=== PATIENT | female | born 1930 | race Caucasian/White ===

== ENCOUNTER 2016-10-02 19:50 | Inpatient (IN) | payer OTHER, MEDICARE ==
[~2016-10-02] VITALS: Ht 162.6 cm; Wt 56.8 kg
[2016-10-02 19:50] VITALS: BP_SYST 144
[2016-10-02] MEDS ORDERED: ASPIRIN 81 MG TAB.CHEW PO ONE (20:00)
[2016-10-02] MEDS ORDERED: DILTIAZEM HCL 25 MG/5 ML VIAL IVP ONE ×2 (20:00→22:15)
[2016-10-02 20:47] LABS: BASOPHILS # (AUTO) 0.2 K/uL (0.0-0.2); BASOPHILS % (AUTO) 1.6 % (0.0-2.0); EOSINOPHILS % (AUTO) 0.1 % (0.0-4.0); HEMATOCRIT 35.3 % (36-48); HEMOGLOBIN 11.8 g/dL (12.0-16.0); LYMPHOCYTES % (AUTO) 14.5 % (20.5-51.5); MEAN CORPUSCULAR HEMOGLOBIN 29 pg (27-31); MEAN CORPUSCULAR HGB CONC 34 % (32-36); MEAN CORPUSCULAR VOLUME 87 fL (79.0-98.0); MONOCYTES # (AUTO) 1.2 K/uL (0.0-1.0); MONOCYTES % (AUTO) 8.9 % (1.7-9.3); NEUTROPHILS # (AUTO) 10.1 K/uL (1.8-7.7); NEUTROPHILS % (AUTO) 74.9 % (40.0-70.0); PLATELET COUNT (AUTO) 373 K/uL (130-430); RED BLOOD CELL COUNT(AUTO) 4.07 MIL/uL (4.2-6.2); RED CELL DISTRIBUTION WIDTH 21.1 % (9.0-15.0); WHITE BLOOD COUNT (AUTO) 13.5 K/uL (4.8-10.8)
[2016-10-02 20:57] LABS: INR 1.7 (0.8-1.2); PROTHROMBIN TIME 18.5 SECS (9.5-12.5)
[2016-10-02 21:00] LABS: ANION GAP 16 (5-15); CALCIUM 8.9 mg/dL (8.4-11.0); CHLORIDE 101 mmol/L (98-107); CREATININE 1.02 mg/dL (0.55-1.30); GLUCOSE 131 mg/dL (70-99); SODIUM SERUM 132 mmol/L (136-145); UREA NITROGEN, BLOOD 17 mg/dL (8-21)
[2016-10-02 21:06] LABS: POTASSIUM 5.7 mmol/L (3.5-5.1)
[2016-10-02 21:21] LABS: ALANINE AMINOTRANSFERASE 684 U/L (12-78); ASPARTATE AMINOTRANSFERASE 192 U/L (10-37); TOTAL BILIRUBIN 2.5 mg/dL (0.0-1.0)
[2016-10-02 21:22] LABS: CREATINE KINASE, TOTAL 58 U/L (26-192); PHOSPHORUS 4.4 mg/dL (2.7-4.5)
[2016-10-02] MEDS ORDERED: cefTRIAXone 1 GM in D5W 50 ML IV ONE (21:30)
[2016-10-02] MEDS ORDERED: cefTRIAXone 1 GM IVPB PREMIX 50 ML IV ONE (21:37)
[2016-10-02] MEDS ORDERED: cefTRIAXone 1 GM VIAL ONE (21:37)
[2016-10-02] MEDS ORDERED: FUROSEMIDE 40 MG/4 ML VIAL IVP ONE (21:45)
[2016-10-02] MEDS ORDERED: fentaNYL CITRATE/PF 100 MCG/2 ML AMP IVP ONE (21:45)
[2016-10-02] MEDS ORDERED: SODIUM POLYSTYRENE SULFONATE 15 GM/60 ML UDBTL PO ONE (21:45)
[2016-10-02] MEDS ORDERED: DILTIAZEM HCL 125 MG in D5W 100 ML IV ONE (21:45)
[2016-10-02] MEDS ORDERED: BRI.2% OP (22:03)
[2016-10-02] MEDS ORDERED: LISI2.5T48 PO (22:03)
[2016-10-02] MEDS ORDERED: BIMA2.5D5 BOTH EYES (22:03)
[2016-10-02] MEDS ORDERED: CARV3.1246 PO (22:03)
[2016-10-02] MEDS ORDERED: ZOLP5TAB2 PO (22:03)
[2016-10-02] MEDS ORDERED: DULO20CA PO (22:03)
[2016-10-02] MEDS ORDERED: D5/0.45 NS 1,000 ML IV SCH (22:15)
[2016-10-02 22:17] LABS: AMYLASE 78 U/L (0-100); LIPASE 98 U/L (73-393)
[2016-10-02 22:32] LABS: INR 1.6 (0.8-1.2); PROTHROMBIN TIME 18.1 SECS (9.5-12.5)
[2016-10-02 22:42] LABS: BILIRUBIN,URINE NEGATIVE (NEGATIVE); BLOOD, URINE NEGATIVE (NEGATIVE); CLARITY/URINE HAZY (CLEAR); COLOR,URINE AMBER (YELLOW); GLUCOSE,URINE NEGATIVE (NEGATIVE); KETONES,URINE NEGATIVE (NEGATIVE); LEUKOCYTE ESTERASE ,URINE TRACE (NEGATIVE); NITRITE, URINE NEGATIVE (NEGATIVE); PH,URINE 5.5 (5.0-8.0); PROTEIN URINE TRACE (NEGATIVE); UROBILINOGEN,URINE 0.2 (0.2-1.0)
[2016-10-02] MEDS ORDERED: IPRATROPIUM/ALBUTEROL SULFATE 3 ML AMPUL.NEB INH PRN ×2 (22:45)
[2016-10-02] MEDS ORDERED: DILTIAZEM HCL 25 MG/5 ML VIAL ONE (22:45)
[2016-10-02 22:53] VITALS: BP_SYST 101
[2016-10-02 23:09] LABS: BACTERIA,URINE FEW /HPF (None Seen); MUCUS,URINE 3+ /LPF (None Seen); RBC,URINE 0-3 /HPF (0-3)
[2016-10-02] MEDS ORDERED: METOPROLOL TARTRATE 5 MG/5 ML VIAL IVP PRN (23:45)
[2016-10-03] VITALS (7 sets, daily range): BP systolic 100–117
[2016-10-03] MEDS ORDERED: CARVEDILOL 6.25 MG TABLET (COREG) PO ONE (00:30)
[2016-10-03] MEDS ORDERED: METOPROLOL TARTRATE 5 MG/5 ML VIAL IVP ONE (01:00)
[2016-10-03] MEDS ORDERED: PIPERACILLIN/TAZOBACTAM 3.375 GM/VIAL (ZOSYN) IV ONE (04:08)
[2016-10-03] MEDS: PIPERACILLIN/TAZO 3.375 GM in NS 50 ML IV SCH ×3 (06:01→22:48)
[2016-10-03 07:33] LABS: BASOPHILS % (AUTO) 0.2 % (0.0-2.0); HEMATOCRIT 34.1 % (36-48); HEMOGLOBIN 11.1 g/dL (12.0-16.0); LYMPHOCYTES # (AUTO) 1.8 K/uL (1.0-5.5); LYMPHOCYTES % (AUTO) 18.4 % (20.5-51.5); MEAN CORPUSCULAR HEMOGLOBIN 29 pg (27-31); MEAN CORPUSCULAR HGB CONC 33 % (32-36); MEAN CORPUSCULAR VOLUME 88 fL (79.0-98.0); MONOCYTES # (AUTO) 1.8 K/uL (0.0-1.0); MONOCYTES % (AUTO) 18.4 % (1.7-9.3); NEUTROPHILS % (AUTO) 62.9 % (40.0-70.0); PLATELET COUNT (AUTO) 305 K/uL (130-430); RED BLOOD CELL COUNT(AUTO) 3.88 MIL/uL (4.2-6.2); RED CELL DISTRIBUTION WIDTH 21.3 % (9.0-15.0); WHITE BLOOD COUNT (AUTO) 9.6 K/uL (4.8-10.8)
[2016-10-03 07:37] LABS: EOSINOPHILS % (AUTO) 0.1 % (0.0-4.0)
[2016-10-03 07:56] LABS: INR 1.6 (0.8-1.2); PROTHROMBIN TIME 17.5 SECS (9.5-12.5)
[2016-10-03 08:06] LABS: ANION GAP 10 (5-15); CALCIUM 8.2 mg/dL (8.4-11.0); CHLORIDE 102 mmol/L (98-107); GLUCOSE 171 mg/dL (70-99); POTASSIUM 4.1 mmol/L (3.5-5.1); SODIUM SERUM 135 mmol/L (136-145); UREA NITROGEN, BLOOD 18 mg/dL (8-21)
[2016-10-03 08:07] LABS: CREATININE 1.04 mg/dL (0.55-1.30)
[2016-10-03 08:14] LABS: TOTAL BILIRUBIN 1.9 mg/dL (0.0-1.0)
[2016-10-03 08:15] LABS: ALANINE AMINOTRANSFERASE 535 U/L (12-78); ALBUMIN 2.4 g/dL (3.4-4.8); ASPARTATE AMINOTRANSFERASE 141 U/L (10-37); CHOLESTEROL 123 mg/dL (<200); HDL CHOLESTEROL 19 mg/dL (>55); LDL CHOLESTEROL 81 mg/dL (<100); TOTAL PROTEIN, SERUM 5.9 g/dL (6.4-8.3); TRIGLYCERIDES 65 mg/dL (30-150)
[2016-10-03 08:27] LABS: LIPASE 100 U/L (73-393)
[2016-10-03] MEDS: FUROSEMIDE 20 MG TABLET PO SCH ×2 (08:46→21:31)
[2016-10-03] MEDS: ENOXAPARIN SODIUM 40 MG/0.4 ML SYRINGE SUBCUT SCH (08:47)
[2016-10-03] MEDS: DULoxetine HCL 20 MG CAPSULE.DR PO SCH (08:48)
[2016-10-03] MEDS: LISINOPRIL 5 MG TABLET PO SCH (08:49)
[2016-10-03] MEDS ORDERED: CARVEDILOL 6.25 MG TABLET (COREG) PO SCH (09:00)
[2016-10-03] MEDS ORDERED: DIATR MEGLU/DIATRIZ SOD 30 ML SOLUTION PO ONE (10:04)
[2016-10-03] MEDS ORDERED: SODIUM CL 3% FOR INHALATION 15 ML VIAL.NEB INH ONE (16:32)
[2016-10-03] MEDS: LATANOPROST 2.5 ML DROPS (XALATAN) OP SCH (21:22)
[2016-10-03] MEDS: BRIMONIDINE TARTRATE 0.2% 5 mL EYE DROPS OP SCH (21:22)
[2016-10-03] MEDS ORDERED: VANCOMYCIN HCL 1 GM/NS PREMIX 250 ML IV ONE (21:30)
[2016-10-03] MEDS: CARVEDILOL 12.5 MG TABLET (COREG) PO SCH (21:32)
[2016-10-03] MEDS: ZOLPIDEM TARTRATE 5 MG TABLET PO PRN (21:37)
[2016-10-03] MEDS ORDERED: VANCOMYCIN HCL 1000 MG/VIAL IV ONE (21:54)
[2016-10-03] MEDS ORDERED: CARVEDILOL 12.5 MG TABLET (COREG) PO ONE (23:15)
[2016-10-04 01:41] VITALS: BP_SYST 104
[2016-10-04 04:10] VITALS: BP_SYST 137
[2016-10-04] MEDS: PIPERACILLIN/TAZO 3.375 GM in NS 50 ML IV SCH ×3 (05:09→21:24)
[2016-10-04 07:18] LABS: ANION GAP 9 (5-15); CALCIUM 7.8 mg/dL (8.4-11.0); CHLORIDE 102 mmol/L (98-107); CREATININE 0.94 mg/dL (0.55-1.30); GLUCOSE 103 mg/dL (70-99); SODIUM SERUM 135 mmol/L (136-145); UREA NITROGEN, BLOOD 21 mg/dL (8-21)
[2016-10-04 07:27] LABS: ALANINE AMINOTRANSFERASE 419 U/L (12-78); ALBUMIN 2.2 g/dL (3.4-4.8); ASPARTATE AMINOTRANSFERASE 133 U/L (10-37); TOTAL BILIRUBIN 1.6 mg/dL (0.0-1.0); TOTAL PROTEIN, SERUM 5.2 g/dL (6.4-8.3)
[2016-10-04 07:31] LABS: BASOPHILS % (AUTO) 0.5 % (0.0-2.0); EOSINOPHILS # (AUTO) 0.3 K/uL (0.0-0.4); EOSINOPHILS % (AUTO) 3.5 % (0.0-4.0); HEMATOCRIT 29.4 % (36-48); HEMOGLOBIN 9.6 g/dL (12.0-16.0); LYMPHOCYTES # (AUTO) 1.5 K/uL (1.0-5.5); LYMPHOCYTES % (AUTO) 18.3 % (20.5-51.5); MEAN CORPUSCULAR HEMOGLOBIN 28 pg (27-31); MEAN CORPUSCULAR HGB CONC 33 % (32-36); MEAN CORPUSCULAR VOLUME 87 fL (79.0-98.0); MONOCYTES # (AUTO) 1.3 K/uL (0.0-1.0); MONOCYTES % (AUTO) 16.7 % (1.7-9.3); NEUTROPHILS # (AUTO) 4.9 K/uL (1.8-7.7); PLATELET COUNT (AUTO) 220 K/uL (130-430); RED BLOOD CELL COUNT(AUTO) 3.38 MIL/uL (4.2-6.2); RED CELL DISTRIBUTION WIDTH 20.5 % (9.0-15.0)
[2016-10-04 07:45] LABS: CHOLESTEROL 110 mg/dL (<200); HDL CHOLESTEROL 16 mg/dL (>55); LDL CHOLESTEROL 76 mg/dL (<100); TRIGLYCERIDES 62 mg/dL (30-150)
[2016-10-04 08:38] VITALS: BP_SYST 120
[2016-10-04] MEDS: DULoxetine HCL 20 MG CAPSULE.DR PO SCH (09:13)
[2016-10-04] MEDS: FUROSEMIDE 20 MG TABLET PO SCH ×2 (09:16→20:31)
[2016-10-04] MEDS: LISINOPRIL 5 MG TABLET PO SCH (09:16)
[2016-10-04] MEDS: ENOXAPARIN SODIUM 40 MG/0.4 ML SYRINGE SUBCUT SCH (09:16)
[2016-10-04] MEDS: CARVEDILOL 12.5 MG TABLET (COREG) PO SCH ×2 (09:17→20:32)
[2016-10-04 12:56] VITALS: BP_SYST 101
[2016-10-04] MEDS ORDERED: POTASSIUM CHLORIDE 20 MEQ TAB.PRT.SR PO ONE ×3 (15:42→19:45)
[2016-10-04 16:44] VITALS: BP_SYST 91
[2016-10-04 19:50] VITALS: BP_SYST 147
[2016-10-04] MEDS: LATANOPROST 2.5 ML DROPS (XALATAN) OP SCH (20:29)
[2016-10-04] MEDS: BRIMONIDINE TARTRATE 0.2% 5 mL EYE DROPS OP SCH (20:29)
[2016-10-04] MEDS: ZOLPIDEM TARTRATE 5 MG TABLET PO PRN (21:45)
[2016-10-05] VITALS (7 sets, daily range): BP systolic 111–143
[2016-10-05] MEDS ORDERED: HYDROcodone/ACETAMIN 5-325 MG TAB (NORCO/ VICODIN) PO PRN (05:15)
[2016-10-05] MEDS ORDERED: MORPHINE 2 MG/ML INJ. SYRINGE IVP PRN (05:15)
[2016-10-05] MEDS: PIPERACILLIN/TAZO 3.375 GM in NS 50 ML IV SCH ×3 (05:29→21:47)
[2016-10-05 06:57] LABS: BASOPHILS % (AUTO) 0.5 % (0.0-2.0); EOSINOPHILS # (AUTO) 0.4 K/uL (0.0-0.4); EOSINOPHILS % (AUTO) 5.3 % (0.0-4.0); HEMATOCRIT 31.3 % (36-48); HEMOGLOBIN 10.2 g/dL (12.0-16.0); LYMPHOCYTES # (AUTO) 1.3 K/uL (1.0-5.5); LYMPHOCYTES % (AUTO) 17.7 % (20.5-51.5); MEAN CORPUSCULAR HEMOGLOBIN 29 pg (27-31); MEAN CORPUSCULAR HGB CONC 33 % (32-36); MEAN CORPUSCULAR VOLUME 88 fL (79.0-98.0); MONOCYTES # (AUTO) 1.3 K/uL (0.0-1.0); MONOCYTES % (AUTO) 18.2 % (1.7-9.3); NEUTROPHILS # (AUTO) 4.2 K/uL (1.8-7.7); NEUTROPHILS % (AUTO) 58.3 % (40.0-70.0); PLATELET COUNT (AUTO) 243 K/uL (130-430); RED BLOOD CELL COUNT(AUTO) 3.55 MIL/uL (4.2-6.2); RED CELL DISTRIBUTION WIDTH 20.7 % (9.0-15.0); WHITE BLOOD COUNT (AUTO) 7.2 K/uL (4.8-10.8)
[2016-10-05 07:06] LABS: ALANINE AMINOTRANSFERASE 395 U/L (12-78); ALBUMIN 2.2 g/dL (3.4-4.8); ANION GAP 7 (5-15); ASPARTATE AMINOTRANSFERASE 189 U/L (10-37); CALCIUM 7.9 mg/dL (8.4-11.0); CHLORIDE 106 mmol/L (98-107); CREATININE 0.78 mg/dL (0.55-1.30); GLUCOSE 98 mg/dL (70-99); POTASSIUM 3.4 mmol/L (3.5-5.1); SODIUM SERUM 139 mmol/L (136-145); TOTAL BILIRUBIN 1.5 mg/dL (0.0-1.0); TOTAL PROTEIN, SERUM 5.6 g/dL (6.4-8.3); UREA NITROGEN, BLOOD 19 mg/dL (8-21)
[2016-10-05] MEDS: FUROSEMIDE 20 MG TABLET PO SCH ×2 (08:57→21:40)
[2016-10-05] MEDS: ENOXAPARIN SODIUM 40 MG/0.4 ML SYRINGE SUBCUT SCH (08:57)
[2016-10-05] MEDS: LISINOPRIL 5 MG TABLET PO SCH (08:57)
[2016-10-05] MEDS: CARVEDILOL 12.5 MG TABLET (COREG) PO SCH ×2 (08:58→21:39)
[2016-10-05] MEDS: DULoxetine HCL 20 MG CAPSULE.DR PO SCH (08:58)
[2016-10-05 10:35] LABS: IRON (SERUM) 28 mcg/dL (37-145); TOTAL IRON BIND. CAPACITY 244 ug/dL (250-450)
[2016-10-05] MEDS: LATANOPROST 2.5 ML DROPS (XALATAN) OP SCH (21:38)
[2016-10-05] MEDS: ZOLPIDEM TARTRATE 5 MG TABLET PO PRN (21:47)
[2016-10-05] MEDS: BRIMONIDINE TARTRATE 0.2% 5 mL EYE DROPS OP SCH (21:47)
[2016-10-06 05:43] VITALS: BP_SYST 121
[2016-10-06] MEDS: PIPERACILLIN/TAZO 3.375 GM in NS 50 ML IV SCH ×3 (06:54→22:16)
[2016-10-06 07:47] LABS: ALANINE AMINOTRANSFERASE 341 U/L (12-78); ALBUMIN 2.3 g/dL (3.4-4.8); ANION GAP 8 (5-15); ASPARTATE AMINOTRANSFERASE 161 U/L (10-37); CALCIUM 7.6 mg/dL (8.4-11.0); CHLORIDE 98 mmol/L (98-107); CREATININE 0.77 mg/dL (0.55-1.30); GLUCOSE 86 mg/dL (70-99); SODIUM SERUM 135 mmol/L (136-145); TOTAL BILIRUBIN 1.4 mg/dL (0.0-1.0); TOTAL PROTEIN, SERUM 5.2 g/dL (6.4-8.3); UREA NITROGEN, BLOOD 15 mg/dL (8-21)
[2016-10-06 07:56] VITALS: BP_SYST 123
[2016-10-06 07:57] LABS: POTASSIUM 2.9 mmol/L (3.5-5.1)
[2016-10-06] MEDS: ENOXAPARIN SODIUM 40 MG/0.4 ML SYRINGE SUBCUT SCH (08:29)
[2016-10-06] MEDS: DULoxetine HCL 20 MG CAPSULE.DR PO SCH (08:30)
[2016-10-06] MEDS: FUROSEMIDE 20 MG TABLET PO SCH ×2 (08:30→20:55)
[2016-10-06] MEDS: LISINOPRIL 5 MG TABLET PO SCH (08:30)
[2016-10-06] MEDS: CARVEDILOL 12.5 MG TABLET (COREG) PO SCH ×2 (08:31→20:42)
[2016-10-06] MEDS ORDERED: POTASSIUM CHLORIDE 20 MEQ TAB.PRT.SR PO SCH (09:45)
[2016-10-06] MEDS ORDERED: POTASSIUM CHLORIDE 20 MEQ TAB.PRT.SR PO ONE ×2 (10:00→13:00)
[2016-10-06 10:40] LABS: HEPATITIS A AB, IgM Negative (Negative); HEPATITIS B CORE AB, IgM Negative (Negative); HEPATITIS B SURFACE AG Negative (Negative)
[2016-10-06 12:42] VITALS: BP_SYST 111
[2016-10-06] MEDS ORDERED: POTASSIUM CHLORIDE 10 MEQ TAB.PRT.SR PO ONE (12:45)
[2016-10-06 16:26] VITALS: BP_SYST 100
[2016-10-06 20:00] VITALS: BP_SYST 131
[2016-10-06] MEDS: POTASSIUM CHLORIDE 10 MEQ TAB.PRT.SR PO SCH (20:43)
[2016-10-06] MEDS: LATANOPROST 2.5 ML DROPS (XALATAN) OP SCH (20:43)
[2016-10-06] MEDS: BRIMONIDINE TARTRATE 0.2% 5 mL EYE DROPS OP SCH (20:44)
[2016-10-06] MEDS: ZOLPIDEM TARTRATE 5 MG TABLET PO PRN (22:15)
[2016-10-06 23:32] VITALS: BP_SYST 124
[2016-10-07 03:32] VITALS: BP_SYST 123
[2016-10-07 06:58] LABS: ANION GAP 7 (5-15); CALCIUM 8.2 mg/dL (8.4-11.0); CHLORIDE 100 mmol/L (98-107); CREATININE 0.85 mg/dL (0.55-1.30); GLUCOSE 85 mg/dL (70-99); POTASSIUM 3.6 mmol/L (3.5-5.1); SODIUM SERUM 135 mmol/L (136-145); UREA NITROGEN, BLOOD 17 mg/dL (8-21)
[2016-10-07 07:07] LABS: ALANINE AMINOTRANSFERASE 293 U/L (12-78); ALBUMIN 2.2 g/dL (3.4-4.8); ASPARTATE AMINOTRANSFERASE 143 U/L (10-37); TOTAL BILIRUBIN 1.2 mg/dL (0.0-1.0); TOTAL PROTEIN, SERUM 5.7 g/dL (6.4-8.3)
[2016-10-07 08:00] VITALS: BP_SYST 131
[2016-10-07] MEDS: PIPERACILLIN/TAZO 3.375 GM in NS 50 ML IV SCH ×3 (08:10→21:49)
[2016-10-07] MEDS: POTASSIUM CHLORIDE 10 MEQ TAB.PRT.SR PO SCH ×2 (09:18→21:50)
[2016-10-07] MEDS: CARVEDILOL 12.5 MG TABLET (COREG) PO SCH ×2 (09:19→21:50)
[2016-10-07] MEDS: LISINOPRIL 5 MG TABLET PO SCH (09:20)
[2016-10-07] MEDS: DULoxetine HCL 20 MG CAPSULE.DR PO SCH (09:20)
[2016-10-07] MEDS: ENOXAPARIN SODIUM 40 MG/0.4 ML SYRINGE SUBCUT SCH (09:21)
[2016-10-07] MEDS: FUROSEMIDE 20 MG TABLET PO SCH ×2 (09:21→21:49)
[2016-10-07 12:32] VITALS: BP_SYST 101
[2016-10-07 16:04] VITALS: BP_SYST 111
[2016-10-07 20:37] VITALS: BP_SYST 119
[2016-10-07] MEDS: ZOLPIDEM TARTRATE 5 MG TABLET PO PRN (21:50)
[2016-10-07] MEDS: LATANOPROST 2.5 ML DROPS (XALATAN) OP SCH (21:52)
[2016-10-07] MEDS: BRIMONIDINE TARTRATE 0.2% 5 mL EYE DROPS OP SCH (21:52)
[2016-10-07 23:34] VITALS: BP_SYST 111
[2016-10-08 03:36] VITALS: BP_SYST 113
[2016-10-08] MEDS: PIPERACILLIN/TAZO 3.375 GM in NS 50 ML IV SCH ×3 (06:23→22:41)
[2016-10-08 07:48] LABS: HEMATOCRIT 31.7 % (36-48); HEMOGLOBIN 10.3 g/dL (12.0-16.0); MEAN CORPUSCULAR HEMOGLOBIN 29 pg (27-31); MEAN CORPUSCULAR HGB CONC 33 % (32-36); MEAN CORPUSCULAR VOLUME 88 fL (79.0-98.0); PLATELET COUNT (AUTO) 237 K/uL (130-430); RED CELL DISTRIBUTION WIDTH 20.7 % (9.0-15.0)
[2016-10-08 08:29] LABS: ALANINE AMINOTRANSFERASE 264 U/L (12-78); ALBUMIN 2.5 g/dL (3.4-4.8); ANION GAP 8 (5-15); ASPARTATE AMINOTRANSFERASE 108 U/L (10-37); CALCIUM 8.5 mg/dL (8.4-11.0); CHLORIDE 97 mmol/L (98-107); CREATININE 0.85 mg/dL (0.55-1.30); GLUCOSE 80 mg/dL (70-99); POTASSIUM 3.6 mmol/L (3.5-5.1); SODIUM SERUM 131 mmol/L (136-145); TOTAL BILIRUBIN 1.3 mg/dL (0.0-1.0); TOTAL PROTEIN, SERUM 6.3 g/dL (6.4-8.3); UREA NITROGEN, BLOOD 14 mg/dL (8-21); WHITE BLOOD COUNT (AUTO) 8.2 K/uL (4.8-10.8)
[2016-10-08 10:09] VITALS: BP_SYST 100
[2016-10-08 10:12] LABS: ATYPICAL LYMPHOCYTES % 0 % (0-0); BAND % (MANUAL) 0 % (0-6); BASOPHILS % (MANUAL) 0 % (0-2); EOSINOPHILS % (MANUAL) 6 % (0-7); LYMPHOCYTES % (MANUAL) 20 % (20-46); MONOCYTES % (MANUAL) 26 % (0-11)
[2016-10-08] MEDS: POTASSIUM CHLORIDE 10 MEQ TAB.PRT.SR PO SCH ×2 (10:46→21:39)
[2016-10-08] MEDS: LISINOPRIL 5 MG TABLET PO SCH (10:47)
[2016-10-08] MEDS: FUROSEMIDE 20 MG TABLET PO SCH ×2 (10:48→21:00)
[2016-10-08] MEDS: DULoxetine HCL 20 MG CAPSULE.DR PO SCH (10:48)
[2016-10-08] MEDS: ENOXAPARIN SODIUM 40 MG/0.4 ML SYRINGE SUBCUT SCH (10:49)
[2016-10-08] MEDS: CARVEDILOL 25 MG TABLET (COREG) PO SCH ×2 (10:49→21:39)
[2016-10-08 10:58] LABS: ANTI NUCLEAR AB WITH REFLEX Negative (Negative)
[2016-10-08 12:49] VITALS: BP_SYST 134
[2016-10-08 12:54] LABS: CERULOPLASMIN 31.9 mg/dL (19.0-39.0)
[2016-10-08 16:50] VITALS: BP_SYST 109
[2016-10-08 19:30] VITALS: BP_SYST 103
[2016-10-08] MEDS: BRIMONIDINE TARTRATE 0.2% 5 mL EYE DROPS OP SCH (21:38)
[2016-10-08] MEDS: LATANOPROST 2.5 ML DROPS (XALATAN) OP SCH (21:38)
[2016-10-08] MEDS: ZOLPIDEM TARTRATE 5 MG TABLET PO PRN (23:00)
[2016-10-09 00:11] VITALS: BP_SYST 103
[2016-10-09 04:04] VITALS: BP_SYST 107
[2016-10-09] MEDS: PIPERACILLIN/TAZO 3.375 GM in NS 50 ML IV SCH (05:27)
[2016-10-09 08:11] VITALS: BP_SYST 121
[2016-10-09] MEDS: DULoxetine HCL 20 MG CAPSULE.DR PO SCH (09:13)
[2016-10-09] MEDS: LISINOPRIL 5 MG TABLET PO SCH (09:13)
[2016-10-09] MEDS: ENOXAPARIN SODIUM 40 MG/0.4 ML SYRINGE SUBCUT SCH (09:14)
[2016-10-09] MEDS: POTASSIUM CHLORIDE 10 MEQ TAB.PRT.SR PO SCH (09:14)
[2016-10-09] MEDS: CARVEDILOL 25 MG TABLET (COREG) PO SCH (09:14)
[2016-10-09] MEDS: FUROSEMIDE 20 MG TABLET PO SCH (09:15)
[2016-10-09 13:06] LABS: ANTI-SMOOTH MUSCLE AB 11 Units (0-19); LIVER-KIDNEY MICROSOMAL AB 2.4 Units (0.0-20.0)
[2016-10-09 13:10] VITALS: BP_SYST 95
[2016-10-09] MEDS ORDERED: metroNIDAZOLE 500 mg/NS 100 ML IV SCH (14:00)
[2016-10-09 15:20] VITALS: BP_SYST 98
[2016-10-09 15:54] VITALS: BP_SYST 98
[2016-10-09] MEDS ORDERED: CEFEPIME 1 GM in D5W 50 ML IV SCH (21:00)
[2016-10-10 13:47] LABS: ALPHA-1-ANTITRYPSIN, S 237 mg/dL (90-200)
[2016-10-10 13:50] LABS: FERRITIN 245 ng/mL (15-150)
[2016-10-10 13:51] LABS: AFP, TUMOR MARKER 67.2 ng/mL (0.0-8.3)
== END 2016-10-09 15:40 | DRG 871 ==
LOC: SED 19:50 → STU 22:15
PROVIDERS: ADMIT Internal Medicine Cardiovascular Disease; ATTEND Internal Medicine Cardiovascular Disease
DX: A41.9 Sepsis, unspecified organism (principal); J96.90 Respiratory failure, unspecified, unspecified whether with hypoxia or hypercapnia; I50.43 Acute on chronic combined systolic (congestive) and diastolic (congestive) heart failure; J69.0 Pneumonitis due to inhalation of food and vomit; I21.4 Non-ST elevation (NSTEMI) myocardial infarction; N39.0 Urinary tract infection, site not specified; L03.119 Cellulitis of unspecified part of limb; D63.8 Anemia in other chronic diseases classified elsewhere; E78.5 Hyperlipidemia, unspecified; F32.9 Major depressive disorder, single episode, unspecified; G62.9 Polyneuropathy, unspecified; G89.4 Chronic pain syndrome; H40.9 Unspecified glaucoma; I11.0 Hypertensive heart disease with heart failure; I25.5 Ischemic cardiomyopathy; I48.2 Chronic atrial fibrillation; K21.9 Gastro-esophageal reflux disease without esophagitis; M19.90 Unspecified osteoarthritis, unspecified site; E87.5 Hyperkalemia; K80.20 Calculus of gallbladder without cholecystitis without obstruction; E87.6 Hypokalemia; Z96.653 Presence of artificial knee joint, bilateral; Z98.49 Cataract extraction status, unspecified eye; Z79.899 Other long term (current) drug therapy; Z90.710 Acquired absence of both cervix and uterus; Z90.49 Acquired absence of other specified parts of digestive tract; Z90.722 Acquired absence of ovaries, bilateral; Z85.71 Personal history of Hodgkin lymphoma
CPT/HCPCS: 36415; 71010; 78226; 80053; 80061; 80074; 81000-TC; 82103; 82105; 82150-TC; 82390; 82550-TC; 82728; 83516; 83540-TC; 83550-TC; 83605; 83690-TC; 83735-TC; 83880; 84100-TC; 84443-TC; 84484; 85007; 85025; 85027; 85610-TC; 85651-TC; 85730-TC; 86038; 86376; 86738; 87040-TC; 87081; 87086; 87449; 93005; 93306; 94640; 96365; 96375; 97110-GP; 97116-GP; 97530-GP; 99291; A9537; J0692; J0696; J1650; J1940; J2270; J2543; J3010; J3370; J3490; J7050; J7060; J7131; Q9964